=== PATIENT | male | born 1935 | race African-American/Black ===

== ENCOUNTER 2017-12-09 03:26 | Inpatient (IN) | payer MEDICARE, MEDICAID ==
--- NOTE | 2017-12-09 04:02 | ED Physician Chart ---
ED Chief Complaint/HPI - Patient Information Date Seen:: 12/09/17 Time Seen:: 03:50 Chief Complaint:: abnormal labs History of Present Illness:: Patient sent here for abnormal labs. His sputum was 87 and potassium 6.2 at his subacute center. He was given Kayexalate there Allergies:: Allergies Allergy/AdvReac Type Severity Reaction Status Date / Time Penicillins Allergy Verified 12/09/17 03:34 Vitals:: Vital Signs - 8 hr 12/09/17 03:26 Temp 97.4 F HR 108 BP 107/67 O2 Sat % 98 Historian:: Patient Review:: Nurse's Note Reviewed ED Review of Systems - Review of Systems General/Constitutional: No fever, No chills Skin: No skin lesions Head: No headache Eyes: No loss of vision ENT: No earache Neck: No neck pain Cardio Vascular: No chest pain Pulmonary: No SOB GI: No nausea, No vomiting, No diarrhea G/U: No dysuria Musculoskeletal: No bone or joint pain Endocrine: No polyuria Psychiatric: Prior psych history Hematopoietic: No bruising Allergic/Immuno: No urticaria Neurological: No syncope ED Past Medical History - Past Medical History Past Medical History: HTN, Asthma/COPD, Dementia, Other (chronic renal disease anemia benign prostatic hypertrophy; status post urosepsis; status post pneumonia) Family History: None Social History: Care Facility Surgical History: other (laparotomy) Psychiatricy History: Dementia Medication: Reviewed Family Medical History - Family Member Mother History Unknown: Yes ED Physical Exam - Physical Examination Other Gen/Cons comments:: Chronically ill-appearing; knows the correct year. Head: Atraumatic Eyes: Lids, conjuctiva normal, PERRL Other Skin comments:: Diffuse skin peeling ENMT: External ears, nose nl Other ENMT comments:: Edentulous Neck: No nuchal rigidity Respiratory: Nl effort/Exclusion Cardio Vascular: RRR GI: No tenderness/rebounding/guarding : No CVA tenderness Extremities: No edema Neuro/Psych: No focal deficits Misc: No paraspinal tenderness ED Labs/Radiology/EKG Results - Lab Results Results: Laboratory Results - last 24 hr 12/09/17 12/09/17 04:15 04:15 WBC 8.6 RBC 4.92 Hgb 13.7 Hct 41.8 MCV 84.9 MCH 27.9 MCHC Differential 32.9 RDW 15.4 Plt Count 232 MPV 7.7 Neutrophils % 64.1 Lymphocytes % 27.0 Monocytes % 3.6 Eosinophils % 5.0 Basophils % 0.3 Sodium 136 Potassium 6.1 H* Chloride 114 H Carbon Dioxide 14.5 L Anion Gap 13.6 BUN 96 H* Creatinine 3.9 H Est GFR ( Amer) TNP Est GFR (Non-Af Amer) TNP BUN/Creatinine Ratio 24.6 Glucose 145 H Calcium 11.0 H Magnesium 2.3 - EKG Interpretations Rate & Rhythm: normal sinus rhythm with a rate of 95 [place]: normal ED Septic Shock - . Is Septic Shock (SBP<90, OR Lactate>4 mmol\L) present?: No - <6hrs of presentation: Vital Signs: Vital Signs - 8 hr 12/09/17 03:26 Temp 97.4 F HR 108 BP 107/67 O2 Sat % 98 ED Reassessment (Disposition) - Reassessment Reassessment Condition:: Unchanged - Diagnosis Diagnosis:: Renal failure; hyperkalemia - Patient Disposition Admitted to:: Telemetry Spoke to:: Sky Lacy Admitting Medical Physician:: Sky Lacy Condition at Disposition:: Stable
[2017-12-09 04:29] LABS: EOSINOPHILE ABSOLUTE 0.4 Th/cmm (0.1-0.4); HEMOGLOBIN 13.7 gm/dL (12-16); MEAN CORPUSCULAR HGB CONC 32.9 pg (28.0-36.0); MONOCYTE ABSOLUTE 0.3 Th/cmm (0.3-1.0); WHITE BLOOD COUNT 8.6 Th/cmm (4.8-10.8)
[2017-12-09 04:31] LABS: % BASOPHILS 0.3 % (0.0-2.0); % MONOCYTES 3.6 % (2.0-10.0); % NEUTROPHILS 64.1 % (40.0-80.0); HEMATOCRIT 41.8 % (41.0-60); LYMPHOCYTE ABSOLUTE 2.3 Th/cmm (1.5-3.0); MEAN CELL VOLUME 84.9 fl (80-99); MEAN CORPUSCULAR HEMOGLOBIN 27.9 pg (27.0-31.0); MEAN PLATELET VOLUME 7.7 fl; NEUTROPHILE ABSOLUTE 5.6 Th/cmm (1.8-8.0); PLATELET COUNT 232 Th/cmm (150-400); RED BLOOD COUNT 4.92 Mil/cmm (3.80-5.80); RED CELL DISTRIBUTION WIDTH 15.4 % (11.5-20.0)
[2017-12-09 04:41] LABS: ANION GAP 13.6 (7.0-16.0); CARBON DIOXIDE 14.5 mEq/L (21.0-31.0); CHLORIDE 114 mEq/L (98-107); CREATININE - SERUM 3.9 mg/dL (0.7-1.3); GLUCOSE 145 mg/dL (70-105); MAGNESIUM 2.3 mg/dL (1.9-2.7); SODIUM SERUM 136 mEq/L (136-145)
[2017-12-09 04:42] LABS: POTASSIUM SERUM 6.1 mEq/L (3.5-5.1)
[2017-12-09 04:44] LABS: BUN - UREA NITROGEN 96 mg/dL (7-25)
[2017-12-09] MEDS ORDERED: Albuterol Nebulizer 2.5mg/3mL HHN ONE ×2 (05:38→05:39)
[2017-12-09] MEDS ORDERED: Albuterol/Ipratropium Neb 3 ML AERS HHN ONE ×2 (05:38→05:52)
[2017-12-09] MEDS ORDERED: Ipratropium Neb 0.5 mg/2.5 mL UD HHN ONE (05:39)
[2017-12-09] MEDS ORDERED: Magnesium Hydroxide (MOM) 30 mL UDC PO PRN (08:04)
[2017-12-09] MEDS ORDERED: Albuterol Nebulizer 2.5mg/3mL HHN PRN (08:04)
[2017-12-09] MEDS ORDERED: Fleet Enema 135 mL RC PRN (08:04)
[2017-12-09] MEDS ORDERED: Non-Formulary Item 1 EA (Cranberry Fruit Extract [Cranberry] 425 MG) PO SCH (09:00)
--- NOTE | 2017-12-09 09:57 | Diagnostic Imaging Report ---
Portable chest x-ray History: Shortness of breath Allowing for portable technique the heart size is normal. No focal pulmonary parenchymal processes. No hilar or mediastinal abnormalities. Impression: No acute abnormalities.
[2017-12-09] MEDS ORDERED: Sodium Chloride 0.9% 1,000 ML IV ONE (14:54)
[2017-12-09] MEDS ORDERED: Aspirin 81mg Chewable Tab ONE (15:08)
[2017-12-09] MEDS ORDERED: Diltiazem 30 mg Tab ONE (15:09)
[2017-12-09] MEDS: Diltiazem 30 mg Tab PO SCH ×2 (15:11→21:02)
[2017-12-09] MEDS: Multivitamin w/ Minerals Tab PO SCH (17:28)
--- NOTE | 2017-12-09 21:20 | History and Physical ---
History of Present Illness - HPI Chief Complaint: abnormal labs HPI: This is a 82 celine old male who is admitted due to abnodmal labs. Patients potassium level 6.2 and was given kayaxelate at the snf. ) Vital Signs: Last Vital Signs Temp 96.7 F 12/09/17 20:00 Pulse 98 12/09/17 21:02 Resp 17 12/09/17 20:00 BP 114/58 12/09/17 20:00 Pulse Ox 94 12/09/17 20:00 Past Medical History Other History: HTN, Asthma/COPD, Dementia,chronic renal disease anemia benign prostatic hypertrophy; status post urosepsis; status post pneumonia Family Medical History - Family Member Mother History Unknown: Yes Social History Smoke: No Alcohol: None Drugs: None Lives: Halfway - Medications Home Medications: Home Medication Medication Instructions Recorded Type Acetaminophen [Tylenol Extra 500 mg PO Q4HR PRN 12/09/17 History Strength] Acetaminophen [Tylenol] 325 mg PO Q4HR PRN 12/09/17 History Acetaminophen [Tylenol] 325 mg PO Q4HR PRN 12/09/17 History Albuterol Sulfate 1 dose HHN Q8HR PRN 12/09/17 History Ascorbic Acid [Vitamin C] 500 mg PO DAILY 12/09/17 History Aspirin EC [Ecotrin] 81 mg PO DAILY 12/09/17 History Bisacodyl [Dulcolax 10 Mg Supp] 10 mg RC DAILY PRN 12/09/17 History Carvedilol [Coreg] 3.125 mg PO BID 12/09/17 History Cranberry Fruit Extract [Cranberry] 425 mg PO DAILY 12/09/17 History Diltiazem [Cardizem] 30 mg PO Q12HR 12/09/17 History Docusate Sodium [Colace] 100 mg PO DAILY 12/09/17 History Famotidine [Pepcid] 20 mg PO AC 12/09/17 History Finasteride [Proscar*] 5 mg PO DAILY 12/09/17 History Fleet Enema [Fleet Enema] 135 ml RC Q48HR PRN 12/09/17 History Magnesium Hydroxide [Milk of 30 ml PO HS PRN 12/09/17 History Magnesia] Megestrol Acetate [Megace] 400 mg PO DAILY 12/09/17 History Multivitamin with Minerals 1 tab PO DAILY 12/09/17 History [Bee-Zee] Sennosides A and B [Senna] 8.6 mg PO HS 12/09/17 History Tamsulosin [Flomax] 0.4 mg PO HS 12/09/17 History Tramadol HCl [Ultram] 50 mg PO Q6H PRN 12/09/17 History Zinc Sulfate 220 mg PO DAILY 12/09/17 History - Allergies Allergies/Adverse Reactions: Allergies Allergy/AdvReac Type Severity Reaction Status Date / Time Penicillins Allergy Verified 12/09/17 03:34 Review of Systems - Review of Systems Constitutional: Report: No Significant Eyes: Report: No Significant ENT: Report: No Significant Respiratory: Report: No Significant Cardiovascular: Report: No Significant Neurological: Report: Weakness Physical Exam - Physical Exam HEENT: Report: Ears Nose Throat within normal limits Neck: Report: Within normal limits Cardiovascular Systems: Report: +s1/s2 noted, Regular, Rate and Rhythm Respiratory: Report: Breath Sounds are within normal limits Abdomen: Report: Non-tender to palpation Extremities: Report: Non-tender to palpation. Skin: Report: Color of skin is within normal limits Neuro/Psych: Report: Mood affect is within normal limits - Lab Results All Lab Results last 24 hours: Laboratory Results - last 24 hr 12/09/17 16:28 POC Glucose 83 - Assessment Assessment: Hyperkalemia Chronic Renal failure HTN Asthma/COPD Dementia anemia of chronic disease - Plan Plan: nephro consult monitor electrolytes follow up labs in am continue current orders
[2017-12-10 07:02] LABS: ANION GAP 13.7 (7.0-16.0); CALCIUM SERUM 10.1 mg/dL (8.6-10.3); CARBON DIOXIDE 13.3 mEq/L (21.0-31.0); CHLORIDE 113 mEq/L (98-107); CREATININE - SERUM 3.6 mg/dL (0.7-1.3); GLUCOSE 99 mg/dL (70-105); SODIUM SERUM 135 mEq/L (136-145)
[2017-12-10 07:09] LABS: BUN - UREA NITROGEN 98 mg/dL (7-25)
[2017-12-10] MEDS: Multivitamin w/ Minerals Tab PO SCH (08:45)
[2017-12-10] MEDS: Diltiazem 30 mg Tab PO SCH ×2 (08:47→20:28)
--- NOTE | 2017-12-10 09:21 | General Progress Note ---
Subjective - Review of Systems Events since last encounter: patient awake alert in no distress Objective - Results Result Diagrams: 12/09/17 04:15 12/10/17 06:30 Recent Labs: Laboratory Last Values WBC 8.6 Th/cmm (4.8-10.8) 12/09/17 04:15 RBC 4.92 Mil/cmm (3.80-5.80) 12/09/17 04:15 Hgb 13.7 gm/dL (12-16) 12/09/17 04:15 Hct 41.8 % (41.0-60) 12/09/17 04:15 MCV 84.9 fl (80-99) 12/09/17 04:15 MCH 27.9 pg (27.0-31.0) 12/09/17 04:15 MCHC Differential 32.9 pg (28.0-36.0) 12/09/17 04:15 RDW 15.4 % (11.5-20.0) 12/09/17 04:15 Plt Count 232 Th/cmm (150-400) 12/09/17 04:15 MPV 7.7 fl 12/09/17 04:15 Neutrophils % 64.1 % (40.0-80.0) 12/09/17 04:15 Lymphocytes % 27.0 % (20.0-50.0) 12/09/17 04:15 Monocytes % 3.6 % (2.0-10.0) 12/09/17 04:15 Eosinophils % 5.0 % (0.0-5.0) 12/09/17 04:15 Basophils % 0.3 % (0.0-2.0) 12/09/17 04:15 Sodium 135 mEq/L (136-145) L 12/10/17 06:30 Potassium 5.0 mEq/L (3.5-5.1) 12/10/17 06:30 Chloride 113 mEq/L (98-107) H 12/10/17 06:30 Carbon Dioxide 13.3 mEq/L (21.0-31.0) L 12/10/17 06:30 Anion Gap 13.7 (7.0-16.0) 12/10/17 06:30 BUN 98 mg/dL (7-25) H* 12/10/17 06:30 Creatinine 3.6 mg/dL (0.7-1.3) H 12/10/17 06:30 Est GFR ( Amer) TNP 12/10/17 06:30 Est GFR (Non-Af Amer) TNP 12/10/17 06:30 BUN/Creatinine Ratio 27.2 12/10/17 06:30 Glucose 99 mg/dL (70-105) 12/10/17 06:30 POC Glucose 83 MG/DL (70 - 105) 12/09/17 16:28 Calcium 10.1 mg/dL (8.6-10.3) 12/10/17 06:30 Magnesium 2.3 mg/dL (1.9-2.7) 12/09/17 04:15 - Physical Exam Vitals and I&O: Vital Signs Temp 96.2 F 12/10/17 04:00 Pulse 96 12/10/17 07:10 Resp 18 12/10/17 07:10 BP 100/63 12/10/17 04:00 Pulse Ox 98 12/10/17 07:10 Intake & Output 12/09/17 12/10/17 12/10/17 18:59 06:59 18:59 Intake Total 200 120 Output Total 650 500 Balance -450 -380 Weight (lbs) 54.885 kg 55.429 kg Intake: Intake, IV Amount 200 Oral 120 Output: Urine 650 500 Active Medications: Current Medications Acetaminophen (Tylenol) 325 mg PO Q4HR PRN PRN Reason: MILD PAIN Stop: 02/07/18 08:03 Albuterol Sulfate (Albuterol 2.5mg/3ml Neb Ud) 2.5 mg HHN Q8HRT PRN PRN Reason: Shortness of Breath Stop: 02/07/18 08:03 Ascorbic Acid (Vitamin C) 500 mg PO DAILY [facility] Stop: 02/07/18 08:59 Last Admin: 12/10/17 08:45 Dose: 500 mg Aspirin (Ecotrin) 81 mg PO DAILY [facility] Stop: 02/07/18 08:59 Last Admin: 12/10/17 08:45 Dose: 81 mg Bisacodyl (Dulcolax 10 Mg Supp) 10 mg RC DAILY PRN PRN Reason: Constipation Stop: 02/07/18 08:03 Carvedilol (Coreg) 3.125 mg PO BID [facility] Stop: 02/07/18 08:59 Last Admin: 12/10/17 08:47 Dose: Not Given Diltiazem HCl (Cardizem) 30 mg PO Q12HR [facility] Stop: 02/07/18 08:59 Last Admin: 12/10/17 08:47 Dose: Not Given Docusate Sodium (Colace) 100 mg PO DAILY [facility] Stop: 02/07/18 08:59 Last Admin: 12/10/17 08:45 Dose: 100 mg Famotidine (Pepcid) 20 mg PO QDAC [facility] Stop: 02/07/18 11:29 Last Admin: 12/10/17 06:48 Dose: 20 mg Finasteride (Proscar) 5 mg PO DAILY [facility] PRN Reason: Protocol Stop: 02/07/18 08:59 Last Admin: 12/10/17 08:46 Dose: 5 mg Magnesium Hydroxide (Milk Of Magnesia) 30 ml PO HS PRN PRN Reason: Constipation Stop: 02/07/18 08:03 Megestrol Acetate (Megace) 400 mg PO DAILY [facility] Stop: 02/07/18 08:59 Last Admin: 12/10/17 08:47 Dose: Not Given Miscellaneous (Clinical Monitoring) 1 ea MC PRN PRN PRN Reason: RENAL Stop: 02/07/18 14:52 Senna (Senna) 8.6 mg PO HS [facility] Stop: 02/07/18 20:59 Last Admin: 12/09/17 21:02 Dose: 8.6 mg Sodium Phosphate (Fleet Enema) 135 ml RC Q48HR PRN PRN Reason: Constipation Stop: 02/07/18 08:03 Tamsulosin HCl (Flomax) 0.4 mg PO HS [facility] Stop: 02/07/18 20:59 Last Admin: 12/09/17 21:02 Dose: 0.4 mg Tramadol HCl (Ultram) 50 mg PO Q6H PRN PRN Reason: MODERATE PAIN Stop: 02/07/18 08:03 Zinc Sulfate (Zinc Sulfate) 220 mg PO DAILY [facility] Stop: 02/07/18 08:59 Last Admin: 12/10/17 08:45 Dose: 220 mg
[2017-12-10] MEDS ORDERED: Sodium Bicarbonate 8.4% 50mEq PFS IVP ONE (16:09)
[2017-12-10] MEDS: Sodium Chloride 0.9% 1,000 ML IV SCH (17:09)
[2017-12-10 18:10] LABS: URINE MICROSCOPIC INDICATED? YES; URINE SOURCE FOLEY PORT
[2017-12-10 18:29] LABS: URINE BILIRUBIN SMALL (NEGATIVE); URINE BLOOD LARGE (NEGATIVE); URINE GLUCOSE (UA) NEGATIVE (NEGATIVE); URINE KETONE NEGATIVE (NEGATIVE); URINE LEUKOCYTE ESTERASE LARGE (NEGATIVE); URINE NITRATE POSITIVE (NEGATIVE); URINE PH 6.5 (4.6 - 8.0); URINE PROTEIN >=300 mg/dL (NEGATIVE)
[2017-12-10 19:17] LABS: URINE CLARITY TURBID (CLEAR); URINE COLOR RED
[2017-12-10 20:02] LABS: EOSINOPHIL SMEAR SOURCE URINE; EOSINOPHILS SMEAR COUNT NONE SEEN (NONE SEEN)
[2017-12-10 20:05] LABS: URINE RBC >100 /hpf (0-5)
[2017-12-10 20:48] LABS: URINE WBC >100 /hpf (0-5)
[2017-12-10 20:50] LABS: URINE BACTERIA MANY /hpf (NONE SEEN); URINE EPITHELIAL CELLS NONE SEEN /lpf (FEW)
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
[2017-12-11] MEDS: Sodium Chloride 0.9% 1,000 ML IV SCH ×2 (02:45→12:48)
[2017-12-11 06:56] LABS: % BASOPHILS 0.4 % (0.0-2.0); % EOSINOPHILS 4.9 % (0.0-5.0); % LYMPHOCYTES 12.7 % (20.0-50.0); % MONOCYTES 4.4 % (2.0-10.0); % NEUTROPHILS 77.6 % (40.0-80.0); EOSINOPHILE ABSOLUTE 0.5 Th/cmm (0.1-0.4); HEMATOCRIT 34.1 % (41.0-60); HEMOGLOBIN 11.3 gm/dL (12-16); LYMPHOCYTE ABSOLUTE 1.2 Th/cmm (1.5-3.0); MEAN CELL VOLUME 84.1 fl (80-99); MEAN CORPUSCULAR HEMOGLOBIN 27.8 pg (27.0-31.0); MEAN CORPUSCULAR HGB CONC 33.1 pg (28.0-36.0); MEAN PLATELET VOLUME 7.5 fl; MONOCYTE ABSOLUTE 0.4 Th/cmm (0.3-1.0); NEUTROPHILE ABSOLUTE 7.4 Th/cmm (1.8-8.0); PLATELET COUNT 187 Th/cmm (150-400); RED BLOOD COUNT 4.05 Mil/cmm (3.80-5.80); WHITE BLOOD COUNT 9.5 Th/cmm (4.8-10.8)
[2017-12-11 07:28] LABS: CREATININE - SERUM 2.8 mg/dL (0.7-1.3)
[2017-12-11] MEDS: Diltiazem 30 mg Tab PO SCH (09:45)
[2017-12-11] MEDS: Multivitamin w/ Minerals Tab PO SCH (09:45)
--- NOTE | 2017-12-11 11:19 | Diagnostic Imaging Report ---
Renal ultrasound HISTORY: Acute renal injury. COMPARISON: None Technique: Sonography of the kidneys and urinary bladder was performed in multiple planes. FINDINGS: Exam is limited due to body habitus. The urinary bladder is collapsed containing a Leigh catheter. There may be a prominent prostate gland or prominence of the urinary bladder wall. The right kidney measures 9.1 x 4.2 cm. No hydronephrosis. A 1.9 cm superior pole renal cyst is noted. Assessment of the left kidney is limited due to bowel gas. The left kidney measures 8.1 x 4.8 cm demonstrating 2 sonolucent lesions of the inferior pole the largest measuring 3.0 x 2.7 cm demonstrating internal echoes. The smaller lesion is difficult to characterize. No definite hydronephrosis. There is increased echogenicity of both kidneys. IMPRESSION: No evidence Limited exam due to body habitus including limited assessment of the left kidney. No evidence of hydronephrosis Increased echogenicity of the kidneys which may be due to underlying medical renal disease Bilateral renal cysts. There appears to be a complex cyst of the left kidney measuring 3.0 x 2.7 cm. If indicated short-term follow-up CT would further clarify Suboptimal assessment of the urinary bladder. There appears to be a Leigh catheter within collapsed urinary bladder. Prominence soft tissue in this region may be due to the patient's adjacent prominent prostate gland or less likely urinary bladder wall thickening or other mass lesions. Clinical correlation and follow-up of this finding is recommended. If necessary follow-up CT examination may be obtained for further assessment of the above findings.
[2017-12-11 11:26] LABS: BUN - UREA NITROGEN 81 mg/dL (7-25)
--- NOTE | 2017-12-11 11:38 | General Progress Note ---
Subjective - Review of Systems Events since last encounter: patient admitted for ckd denies nausea no pain Objective - Results Result Diagrams: 12/11/17 06:06 12/11/17 06:06 Recent Labs: Laboratory Last Values WBC 9.5 Th/cmm (4.8-10.8) 12/11/17 06:06 RBC 4.05 Mil/cmm (3.80-5.80) 12/11/17 06:06 Hgb 11.3 gm/dL (12-16) L 12/11/17 06:06 Hct 34.1 % (41.0-60) L 12/11/17 06:06 MCV 84.1 fl (80-99) 12/11/17 06:06 MCH 27.8 pg (27.0-31.0) 12/11/17 06:06 MCHC Differential 33.1 pg (28.0-36.0) 12/11/17 06:06 RDW 15.0 % (11.5-20.0) 12/11/17 06:06 Plt Count 187 Th/cmm (150-400) 12/11/17 06:06 MPV 7.5 fl 12/11/17 06:06 Neutrophils % 77.6 % (40.0-80.0) 12/11/17 06:06 Lymphocytes % 12.7 % (20.0-50.0) L 12/11/17 06:06 Monocytes % 4.4 % (2.0-10.0) 12/11/17 06:06 Eosinophils % 4.9 % (0.0-5.0) 12/11/17 06:06 Basophils % 0.4 % (0.0-2.0) 12/11/17 06:06 Eos Smear Source URINE 12/10/17 17:53 Eos Smear Total Cells NONE SEEN (NONE SEEN) 12/10/17 17:53 Sodium 135 mEq/L (136-145) L 12/10/17 06:30 Potassium 5.0 mEq/L (3.5-5.1) 12/10/17 06:30 Chloride 113 mEq/L (98-107) H 12/10/17 06:30 Carbon Dioxide 13.3 mEq/L (21.0-31.0) L 12/10/17 06:30 Anion Gap 13.7 (7.0-16.0) 12/10/17 06:30 BUN 81 mg/dL (7-25) H* 12/11/17 06:06 Creatinine 2.8 mg/dL (0.7-1.3) H 12/11/17 06:06 Est GFR ( Amer) TNP 12/11/17 06:06 Est GFR (Non-Af Amer) TNP 12/11/17 06:06 BUN/Creatinine Ratio 28.9 12/11/17 06:06 Glucose 99 mg/dL (70-105) 12/10/17 06:30 POC Glucose 83 MG/DL (70 - 105) 12/09/17 16:28 Calcium 10.1 mg/dL (8.6-10.3) 12/10/17 06:30 Magnesium 2.3 mg/dL (1.9-2.7) 12/09/17 04:15 Urine Source [place] 12/10/17 17:53 Urine Color RED 12/10/17 17:53 Urine Clarity TURBID (CLEAR) 12/10/17 17:53 Urine pH 6.5 (4.6 - 8.0) 12/10/17 17:53 Ur Specific [place] 1.015 (1.005-1.030) 12/10/17 17:53 Urine Protein >=300 mg/dL (NEGATIVE) 12/10/17 17:53 Urine Glucose (UA) NEGATIVE mg/dL (NEGATIVE) 12/10/17 17:53 Urine Ketones NEGATIVE mg/dL (NEGATIVE) 12/10/17 17:53 Urine Blood LARGE (NEGATIVE) H 12/10/17 17:53 Urine Nitrate POSITIVE (NEGATIVE) H 12/10/17 17:53 Urine Bilirubin SMALL (NEGATIVE) H 12/10/17 17:53 Urine Urobilinogen 1.0 E.U./dL (0.2 - 1.0) 12/10/17 17:53 Ur Leukocyte Esterase LARGE (NEGATIVE) H 12/10/17 17:53 Urine RBC >100 /hpf (0-5) H 12/10/17 17:53 Urine WBC >100 /hpf (0-5) H 12/10/17 17:53 Ur Epithelial Cells NONE SEEN /lpf (FEW) 12/10/17 17:53 Urine Bacteria MANY /hpf (NONE SEEN) H 12/10/17 17:53 Ur Random Sodium 70 mmol/L 12/10/17 17:53 Urine Creatinine 69.0 mg/dl (39.0-259.0) 12/10/17 17:53 - Physical Exam Vitals and I&O: Vital Signs Temp 97.4 F 12/11/17 07:37 Pulse 109 12/11/17 09:46 Resp 18 12/11/17 08:00 BP 120/79 12/11/17 09:46 Pulse Ox 97 12/11/17 07:37 Intake & Output 12/10/17 12/11/17 12/11/17 18:59 06:59 18:59 Intake Total 800 1200 Output Total 1500 Balance 800 -300 Weight (lbs) 55.429 kg 55.565 kg Intake: Intake, IV Amount 960 Sodium Chloride 0.9% 1, 960 000 ml @ 100 mls/hr IV . Q10H [facility] Rx#:[id number] Oral 800 240 Output: Urine 1500 Active Medications: Current Medications Acetaminophen (Tylenol) 325 mg PO Q4HR PRN PRN Reason: MILD PAIN Stop: 02/07/18 08:03 Albuterol Sulfate (Albuterol 2.5mg/3ml Neb Ud) 2.5 mg HHN Q8HRT PRN PRN Reason: Shortness of Breath Stop: 02/07/18 08:03 Ascorbic Acid (Vitamin C) 500 mg PO DAILY [facility] Stop: 02/07/18 08:59 Last Admin: 12/11/17 09:45 Dose: 500 mg Aspirin (Ecotrin) 81 mg PO DAILY [facility] Stop: 02/07/18 08:59 Last Admin: 12/11/17 09:45 Dose: 81 mg Bisacodyl (Dulcolax 10 Mg Supp) 10 mg RC DAILY PRN PRN Reason: Constipation Stop: 02/07/18 08:03 Carvedilol (Coreg) 3.125 mg PO BID [facility] Stop: 02/07/18 08:59 Last Admin: 12/11/17 09:46 Dose: 3.125 mg Diltiazem HCl (Cardizem) 30 mg PO Q12HR [facility] Stop: 02/07/18 08:59 Last Admin: 12/11/17 09:45 Dose: 30 mg Docusate Sodium (Colace) 100 mg PO DAILY [facility] Stop: 02/07/18 08:59 Last Admin: 12/11/17 09:45 Dose: 100 mg Famotidine (Pepcid) 20 mg PO QDAC [facility] Stop: 02/07/18 11:29 Last Admin: 12/11/17 06:38 Dose: 20 mg Finasteride (Proscar) 5 mg PO DAILY [facility] PRN Reason: Protocol Stop: 02/07/18 08:59 Last Admin: 12/11/17 09:53 Dose: 5 mg Sodium Chloride (Nacl 0.9%) 1,000 mls @ 100 mls/hr IV .Q10H [facility] Stop: 02/08/18 16:13 Last Admin: 12/11/17 02:45 Dose: 100 mls/hr Levofloxacin (Levaquin) 250 mg PO Q48HR [facility] Stop: 02/10/18 21:59 Magnesium Hydroxide (Milk Of Magnesia) 30 ml PO HS PRN PRN Reason: Constipation Stop: 02/07/18 08:03 Megestrol Acetate (Megace) 400 mg PO DAILY [facility] Stop: 02/07/18 08:59 Last Admin: 12/11/17 09:57 Dose: Not Given Miscellaneous (Clinical Monitoring) 1 ea MC PRN PRN PRN Reason: RENAL Stop: 02/07/18 14:52 Mupirocin (Bactroban Oint) 1 appl NS BID [facility] Stop: 12/15/17 09:01 Last Admin: 12/11/17 09:48 Dose: 1 appl Senna (Senna) 8.6 mg PO HS [facility] Stop: 02/07/18 20:59 Last Admin: 12/10/17 20:28 Dose: 8.6 mg Sodium Phosphate (Fleet Enema) 135 ml RC Q48HR PRN PRN Reason: Constipation Stop: 02/07/18 08:03 Tamsulosin HCl (Flomax) 0.4 mg PO HS [facility] Stop: 02/07/18 20:59 Last Admin: 12/10/17 20:28 Dose: 0.4 mg Tramadol HCl (Ultram) 50 mg PO Q6H PRN PRN Reason: MODERATE PAIN Stop: 02/07/18 08:03 Zinc Sulfate (Zinc Sulfate) 220 mg PO DAILY [facility] Stop: 02/07/18 08:59 Last Admin: 12/11/17 09:45 Dose: 220 mg
--- NOTE | 2017-12-11 13:37 | General Progress Note ---
Subjective - Review of Systems Service Date: 12/11/17 Subjective: alert, communicating Objective - Results Result Diagrams: 12/11/17 06:06 12/11/17 06:06 Recent Labs: Laboratory Last Values WBC 9.5 Th/cmm (4.8-10.8) 12/11/17 06:06 RBC 4.05 Mil/cmm (3.80-5.80) 12/11/17 06:06 Hgb 11.3 gm/dL (12-16) L 12/11/17 06:06 Hct 34.1 % (41.0-60) L 12/11/17 06:06 MCV 84.1 fl (80-99) 12/11/17 06:06 MCH 27.8 pg (27.0-31.0) 12/11/17 06:06 MCHC Differential 33.1 pg (28.0-36.0) 12/11/17 06:06 RDW 15.0 % (11.5-20.0) 12/11/17 06:06 Plt Count 187 Th/cmm (150-400) 12/11/17 06:06 MPV 7.5 fl 12/11/17 06:06 Neutrophils % 77.6 % (40.0-80.0) 12/11/17 06:06 Lymphocytes % 12.7 % (20.0-50.0) L 12/11/17 06:06 Monocytes % 4.4 % (2.0-10.0) 12/11/17 06:06 Eosinophils % 4.9 % (0.0-5.0) 12/11/17 06:06 Basophils % 0.4 % (0.0-2.0) 12/11/17 06:06 Eos Smear Source URINE 12/10/17 17:53 Eos Smear Total Cells NONE SEEN (NONE SEEN) 12/10/17 17:53 Sodium 135 mEq/L (136-145) L 12/10/17 06:30 Potassium 5.0 mEq/L (3.5-5.1) 12/10/17 06:30 Chloride 113 mEq/L (98-107) H 12/10/17 06:30 Carbon Dioxide 13.3 mEq/L (21.0-31.0) L 12/10/17 06:30 Anion Gap 13.7 (7.0-16.0) 12/10/17 06:30 BUN 81 mg/dL (7-25) H* 12/11/17 06:06 Creatinine 2.8 mg/dL (0.7-1.3) H 12/11/17 06:06 Est GFR ( Amer) TNP 12/11/17 06:06 Est GFR (Non-Af Amer) TNP 12/11/17 06:06 BUN/Creatinine Ratio 28.9 12/11/17 06:06 Glucose 99 mg/dL (70-105) 12/10/17 06:30 POC Glucose 83 MG/DL (70 - 105) 12/09/17 16:28 Calcium 10.1 mg/dL (8.6-10.3) 12/10/17 06:30 Magnesium 2.3 mg/dL (1.9-2.7) 12/09/17 04:15 Urine Source [facility] [place] 12/10/17 17:53 Urine Color RED 12/10/17 17:53 Urine Clarity TURBID (CLEAR) 12/10/17 17:53 Urine pH 6.5 (4.6 - 8.0) 12/10/17 17:53 Ur Specific Effort 1.015 (1.005-1.030) 12/10/17 17:53 Urine Protein >=300 mg/dL (NEGATIVE) 12/10/17 17:53 Urine Glucose (UA) NEGATIVE mg/dL (NEGATIVE) 12/10/17 17:53 Urine Ketones NEGATIVE mg/dL (NEGATIVE) 12/10/17 17:53 Urine Blood LARGE (NEGATIVE) H 12/10/17 17:53 Urine Nitrate POSITIVE (NEGATIVE) H 12/10/17 17:53 Urine Bilirubin SMALL (NEGATIVE) H 12/10/17 17:53 Urine Urobilinogen 1.0 E.U./dL (0.2 - 1.0) 12/10/17 17:53 Ur Leukocyte Esterase LARGE (NEGATIVE) H 12/10/17 17:53 Urine RBC >100 /hpf (0-5) H 12/10/17 17:53 Urine WBC >100 /hpf (0-5) H 12/10/17 17:53 Ur Epithelial Cells NONE SEEN /lpf (FEW) 12/10/17 17:53 Urine Bacteria MANY /hpf (NONE SEEN) H 12/10/17 17:53 Ur Random Sodium 70 mmol/L 12/10/17 17:53 Urine Creatinine 69.0 mg/dl (39.0-259.0) 12/10/17 17:53 - Physical Exam Vitals and I&O: Vital Signs Temp 97.6 F 12/11/17 12:26 Pulse 98 12/11/17 12:26 Resp 17 12/11/17 12:26 BP 120/64 12/11/17 12:26 Pulse Ox 98 12/11/17 12:26 Intake & Output 12/10/17 12/11/17 12/11/17 18:59 06:59 18:59 Intake Total 800 1200 1000 Output Total 1500 Balance 800 -300 1000 Weight (lbs) 55.429 kg 55.565 kg Intake: Intake, IV Amount 960 1000 Sodium Chloride 0.9% 1, 960 1000 000 ml @ 100 mls/hr IV . Q10H [facility] Rx#:[id number] Oral 800 240 Output: Urine 1500 Active Medications: Current Medications Acetaminophen (Tylenol) 325 mg PO Q4HR PRN PRN Reason: MILD PAIN Stop: 02/07/18 08:03 Albuterol Sulfate (Albuterol 2.5mg/3ml Neb Ud) 2.5 mg HHN Q8HRT PRN PRN Reason: Shortness of Breath Stop: 02/07/18 08:03 Ascorbic Acid (Vitamin C) 500 mg PO DAILY [facility] Stop: 02/07/18 08:59 Last Admin: 12/11/17 09:45 Dose: 500 mg Aspirin (Ecotrin) 81 mg PO DAILY [facility] Stop: 02/07/18 08:59 Last Admin: 12/11/17 09:45 Dose: 81 mg Bisacodyl (Dulcolax 10 Mg Supp) 10 mg RC DAILY PRN PRN Reason: Constipation Stop: 02/07/18 08:03 Carvedilol (Coreg) 3.125 mg PO BID [facility] Stop: 02/07/18 08:59 Last Admin: 12/11/17 09:46 Dose: 3.125 mg Diltiazem HCl (Cardizem) 30 mg PO Q12HR [facility] Stop: 02/07/18 08:59 Last Admin: 12/11/17 09:45 Dose: 30 mg Docusate Sodium (Colace) 100 mg PO DAILY [facility] Stop: 02/07/18 08:59 Last Admin: 12/11/17 09:45 Dose: 100 mg Famotidine (Pepcid) 20 mg PO QDAC [facility] Stop: 02/07/18 11:29 Last Admin: 12/11/17 06:38 Dose: 20 mg Finasteride (Proscar) 5 mg PO DAILY [facility] PRN Reason: Protocol Stop: 02/07/18 08:59 Last Admin: 12/11/17 09:53 Dose: 5 mg Sodium Chloride (Nacl 0.9%) 1,000 mls @ 100 mls/hr IV .Q10H [facility] Stop: 02/08/18 16:13 Last Admin: 12/11/17 12:48 Dose: 100 mls/hr Levofloxacin (Levaquin) 250 mg PO Q48HR [facility] Stop: 02/10/18 21:59 Magnesium Hydroxide (Milk Of Magnesia) 30 ml PO HS PRN PRN Reason: Constipation Stop: 02/07/18 08:03 Megestrol Acetate (Megace) 400 mg PO DAILY [facility] Stop: 02/07/18 08:59 Last Admin: 12/11/17 09:57 Dose: Not Given Miscellaneous (Clinical Monitoring) 1 ea MC PRN PRN PRN Reason: RENAL Stop: 02/07/18 14:52 Mupirocin (Bactroban Oint) 1 appl NS BID [facility] Stop: 12/15/17 09:01 Last Admin: 12/11/17 09:48 Dose: 1 appl Senna (Senna) 8.6 mg PO HS [facility] Stop: 02/07/18 20:59 Last Admin: 12/10/17 20:28 Dose: 8.6 mg Sodium Phosphate (Fleet Enema) 135 ml RC Q48HR PRN PRN Reason: Constipation Stop: 02/07/18 08:03 Tamsulosin HCl (Flomax) 0.4 mg PO HS [facility] Stop: 02/07/18 20:59 Last Admin: 12/10/17 20:28 Dose: 0.4 mg Tramadol HCl (Ultram) 50 mg PO Q6H PRN PRN Reason: MODERATE PAIN Stop: 02/07/18 08:03 Zinc Sulfate (Zinc Sulfate) 220 mg PO DAILY [facility] Stop: 02/07/18 08:59 Last Admin: 12/11/17 09:45 Dose: 220 mg General: Alert, No acute distress HEENT: Atraumatic, Mucous membr. moist/pink Neck: Supple, +2 carotid pulse wo bruit Cardiovascular: Regular rate, Normal S1, Normal S2 Lungs: Clear to auscultation Abdomen: Bowel sounds, Soft Extremities: no Edema Neurological: Sensation intact Skin: no Rash Psych/Mental Status: Mood NL Assessment/Plan - Assessment Assessment: CELINE on CKD Non Gap Met Acid Hyperkalemia Hypercalcemia Dehydration PAD S/P CVA Possible Complex Left Cyst - Plan Plan: Lab - Result Diagrams 12/11/17 06:06 12/11/17 06:06 Current Medications Acetaminophen (Tylenol) 325 mg PO Q4HR PRN PRN Reason: MILD PAIN Stop: 02/07/18 08:03 Albuterol Sulfate (Albuterol 2.5mg/3ml Neb Ud) 2.5 mg HHN Q8HRT PRN PRN Reason: Shortness of Breath Stop: 02/07/18 08:03 Ascorbic Acid (Vitamin C) 500 mg PO DAILY [facility] Stop: 02/07/18 08:59 Last Admin: 12/11/17 09:45 Dose: 500 mg Aspirin (Ecotrin) 81 mg PO DAILY [facility] Stop: 02/07/18 08:59 Last Admin: 12/11/17 09:45 Dose: 81 mg Bisacodyl (Dulcolax 10 Mg Supp) 10 mg RC DAILY PRN PRN Reason: Constipation Stop: 02/07/18 08:03 Carvedilol (Coreg) 3.125 mg PO BID [facility] Stop: 02/07/18 08:59 Last Admin: 12/11/17 09:46 Dose: 3.125 mg Diltiazem HCl (Cardizem) 30 mg PO Q12HR [facility] Stop: 02/07/18 08:59 Last Admin: 12/11/17 09:45 Dose: 30 mg Docusate Sodium (Colace) 100 mg PO DAILY [facility] Stop: 02/07/18 08:59 Last Admin: 12/11/17 09:45 Dose: 100 mg Famotidine (Pepcid) 20 mg PO QDAC [facility] Stop: 02/07/18 11:29 Last Admin: 12/11/17 06:38 Dose: 20 mg Finasteride (Proscar) 5 mg PO DAILY [facility] PRN Reason: Protocol Stop: 02/07/18 08:59 Last Admin: 12/11/17 09:53 Dose: 5 mg Sodium Chloride (Nacl 0.9%) 1,000 mls @ 100 mls/hr IV .Q10H [facility] Stop: 02/08/18 16:13 Last Admin: 12/11/17 12:48 Dose: 100 mls/hr Levofloxacin (Levaquin) 250 mg PO Q48HR [facility] Stop: 02/10/18 21:59 Magnesium Hydroxide (Milk Of Magnesia) 30 ml PO HS PRN PRN Reason: Constipation Stop: 02/07/18 08:03 Megestrol Acetate (Megace) 400 mg PO DAILY [facility] Stop: 02/07/18 08:59 Last Admin: 12/11/17 09:57 Dose: Not Given Miscellaneous (Clinical Monitoring) 1 ea [facility] PRN PRN PRN Reason: RENAL Stop: 02/07/18 14:52 Mupirocin (Bactroban Oint) 1 appl NS BID [facility] Stop: 12/15/17 09:01 Last Admin: 12/11/17 09:48 Dose: 1 appl Senna (Senna) 8.6 mg PO HS [facility] Stop: 02/07/18 20:59 Last Admin: 12/10/17 20:28 Dose: 8.6 mg Sodium Phosphate (Fleet Enema) 135 ml RC Q48HR PRN PRN Reason: Constipation Stop: 02/07/18 08:03 Tamsulosin HCl (Flomax) 0.4 mg PO HS [facility] Stop: 02/07/18 20:59 Last Admin: 12/10/17 20:28 Dose: 0.4 mg Tramadol HCl (Ultram) 50 mg PO Q6H PRN PRN Reason: MODERATE PAIN Stop: 02/07/18 08:03 Zinc Sulfate (Zinc Sulfate) 220 mg PO DAILY [facility] Stop: 02/07/18 08:59 Last Admin: 12/11/17 09:45 Dose: 220 mg Lab - Result Diagrams 12/11/17 06:06 12/11/17 06:06 Kidney fnc gradually improving continue IVF encourage po intake
[2017-12-12 08:33] LABS: SODIUM SERUM 135 mEq/L (136-145)
[2017-12-12 08:34] LABS: ALB/GLOB RATIO 0.7 (1.0-1.8); ANION GAP 8.1 (7.0-16.0); BILIRUBIN,TOTAL 0.5 mg/dL (0.3-1.0); CALCIUM SERUM 9.1 mg/dL (8.6-10.3); CHLORIDE 112 mEq/L (98-107); GLUCOSE 94 mg/dL (70-105); POTASSIUM SERUM 4.1 mEq/L (3.5-5.1); SGOT 11 U/L (13-39); TOTAL PROTEIN,SERUM 7.2 gm/dL (6.0-8.3)
[2017-12-12 08:35] LABS: ALKALINE PHOSPHATASE 97 U/L (34-104); MAGNESIUM 1.9 mg/dL (1.9-2.7); PHOSPHOROUS 3.5 mg/dL (2.5-5.0); SGPT/ALT 7 U/L (7-52); URIC ACID 9.6 mg/dL (4.4-7.6)
--- NOTE | 2017-12-15 17:44 | Discharge Summary ---
DATE OF DISCHARGE: 12/11/2017 SUMMARY: An 82-year-old admitted for abnormal labs including BUN and creatinine. At baseline, he has increasing acute on chronic renal failure and also the patient had hyperkalemia, hypertension, asthma, COPD, dementia. The patient was treated for all of that. Had Nephrology consult as well and Dr. Rowe saw the patient, and Dr. Rowe felt that the patient to continue with IV fluids and bicarbonate and the patient . The patient was in stable condition on 12/11/2017 and the patient was discharged back to [facility] where I will be following the patient. CONDITION AT THE TIME OF DISCHARGE: Stable. MEDICATIONS: See the reconciliation sheet. JOB# [id number]
== END 2017-12-11 18:35 | disposition home or self-care (01) | DRG 683 ==
LOC: ER 03:26 → MSI 06:05 → TELE 06:30 → MSI 12-11 17:52
PROVIDERS: ADMIT Internal Medicine; ATTEND Internal Medicine
DX: N17.9 Acute kidney failure, unspecified (principal); E87.2 Acidosis; E87.5 Hyperkalemia; E83.52 Hypercalcemia; D63.8 Anemia in other chronic diseases classified elsewhere; E86.0 Dehydration; J44.9 Chronic obstructive pulmonary disease, unspecified; N18.4 Chronic kidney disease, stage 4 (severe); F03.90 Unspecified dementia, unspecified severity, without behavioral disturbance, psychotic disturbance, mood disturbance, and anxiety; I12.9 Hypertensive chronic kidney disease with stage 1 through stage 4 chronic kidney disease, or unspecified chronic kidney disease; I73.9 Peripheral vascular disease, unspecified; N40.0 Benign prostatic hyperplasia without lower urinary tract symptoms; Z87.01 Personal history of pneumonia (recurrent); Z88.0 Allergy status to penicillin; Z86.73 Personal history of transient ischemic attack (TIA), and cerebral infarction without residual deficits; Z86.718 Personal history of other venous thrombosis and embolism
CPT/HCPCS: 36415-UA; 71045-TC; 76770-TC; 80048-TC; 80053-TC; 81001-TC; 81015-TC; 82570-TC; 82948-90; 83735-TC; 84100-TC; 84300-TC; 84550-TC; 85025-TC; 87086-90; 93005; 94640; 94760; J2405; J7030; Z7610